=== PATIENT | male | born 1965 | race Caucasian/White ===

== ENCOUNTER 2019-01-31 02:46 | Emergency (ER) | payer OTHER ==
[2019-01-31] MEDS ORDERED: PROPARACAINE 0.5% OPHTH DROPS 15 ML BTL RIGHT EYE STA (03:29)
[2019-01-31] MEDS ORDERED: TOBRAMYCIN 0.3% OPHTH OINT 3.5 GM TUBE RIGHT EYE STA (03:58)
--- NOTE | 2019-01-31 04:00 | ED ---
Eye Problem HPI - General Chief complaint: Eye Problems Stated complaint: FB in eye Time Seen by Provider: 01/31/19 03:06 Source: patient Mode of arrival: ambulatory Limitations: no limitations - History of Present Illness Initial comments: 53-year-old male patient presents to the emergency department today for evaluation of right eye redness and discomfort. Patient states that he was working on some ceiling tiles earlier in the day and dust was falling in his face. Patient states he felt that he had a foreign body. Patient states he did rub the eye. Patient states he did flush the eye several times was unable to get the foreign body out. Patient states he is having some mild blurred vision related to this. Denies any fever or chills. Denies any headache. Denies any other symptoms or concerns. - Related Data Allergies Allergy/AdvReac Type Severity Reaction Status Date / Time Penicillins Allergy Unknown Verified 01/31/19 02:57 Childhood Review of Systems ROS Statement: Those systems with pertinent positive or pertinent negative responses have been documented in the HPI. ROS Other: All systems not noted in ROS Statement are negative. Past Medical History Past Medical History: Hypertension History of Any Multi-Drug Resistant Organisms: None Reported Past Surgical History: Appendectomy Additional Past Surgical History / Comment(s): neck fusion Past Psychological History: No Psychological Hx Reported Smoking Status: Current every day smoker Past Alcohol Use History: Occasional Past Drug Use History: None Reported General Exam Limitations: no limitations General appearance: alert, in no apparent distress, other (Social well- developed, well-nourished adult male patient in no acute distress. Vital signs upon presentation are temperature 97.7F, pulse 74, respirations 15, blood pressure 121/76, pulse ox 97% on room air.) Eye exam: Present: PERRL, EOMI, conjunctival injection (Right), other (Fluo rescein stain with Wood's lamp examination was performed. There is small corneal abrasion noted to 4:00. There was foreign body noted to the right lower lid, removed. There is no evidence for conjunctival abrasion. No evidence for globe rupture or hyphema.). Absent: normal appearance, scleral icterus, periorbital swelling Respiratory exam: Present: normal lung sounds bilaterally. Absent: respiratory distress, wheezes, rales, rhonchi, stridor Cardiovascular Exam: Present: regular rate, normal rhythm, normal heart sounds. Absent: systolic murmur, diastolic murmur, rubs, gallop, clicks Neurological exam: Present: alert, oriented X3, CN II-XII intact Psychiatric exam: Present: normal affect, normal mood Skin exam: Present: warm, dry, intact, normal color. Absent: rash Course Vital Signs 01/31/19 02:52 Temperature 97.7 F Pulse Rate 74 Respiratory 15 Rate Blood Pressure 121/76 O2 Sat by Pulse 97 Oximetry Medical Decision Making - Medical Decision Making 53-year-old male patient presented to the emergency department today for evaluation of foreign body to the right eye. Physical examination did reveal right conjunctival injection. Fluorescein stain with Wood's lamp examination was performed and did show evidence for a small corneal abrasion. Patient also had foreign body to the right lower lid. Foreign body was removed. Patient did have relief with use of proparacaine drop. We will give tobramycin ointment to use 4 times daily. He is instructed to follow-up with aprn for recheck in 1-2 days if symptoms aren't improved. Return parameters were discussed in detail. He verbalizes understanding and agrees with this plan. Disposition Clinical Impression: Foreign body of right eye, Corneal abrasion Disposition: HOME SELF-CARE Condition: Good Instructions (If sedation given, give patient instructions): Tobramycin (Into the eye), Corneal Abrasion (ED), Eye Foreign Body (ED) Additional Instructions: Use tobramycin ointment, 1 cm ribbon to the lower eyelid 4 times daily while awake. If symptoms aren't improving over the next 1-2 days follow-up with the aprn for further evaluation. Return to the emergency department immediately for any new, worsening, or concerning symptoms. Is patient prescribed a controlled substance at d/c from ED?: No Referrals: Ben Vargas MD [Primary Care Provider] - 1-2 days Solange Gupta MD [STAFF PHYSICIAN] - 1-2 days Time of Disposition: 03:59
[2019-01-31 04:11] VITALS: BP 130/79; PULSE 69; RESP 18; TEMP 97.9
== END 2019-01-31 04:29 | disposition home or self-care (01) ==
LOC: EC 02:46
DX: T15.01XA Foreign body in cornea, right eye, initial encounter (principal); F17.200 Nicotine dependence, unspecified, uncomplicated; Z88.0 Allergy status to penicillin
CPT/HCPCS: 65220; 99283

== ENCOUNTER → 2023-11-23 | Outpatient (CLI) | payer OTHER ==
--- NOTE | 2023-11-24 05:49 | MR ---
EXAMINATION TYPE: MR lumbar spine wo con DATE OF EXAM: 11/23/2023 7:23 AM CLINICAL INDICATION:Male, 58 years old with history of M51.36 OTHER INTERVERTEBRAL DISC DEGENERATION, LUM; PHH, Back pain that travels to RT and Left Thigh x20 Years COMPARISON: None TECHNIQUE: Multiplanar, multi sequential MR imaging of the lumbar spine performed without contrast. FINDINGS: Alignment: The lumbar vertebral bodies have preserved heights and alignment. Cord, canal: Conus medullaris terminates at the L1 level without enlargement or signal abnormality. N o pathologic intracanalicular process identified. Tiny perineural cysts suggested at S3. Bones/Discs: Mild disc desiccation noted at each level from L3 to S1. No evidence of marrow edema or focal T1 dark bony lesions. T12-L1: No significant disc pathology or facet arthrosis. The spinal canal and neural foramina are pa tent. L1-L2: Mild broad-based posterior disc bulging and mild facet arthrosis. No significant canal or neur oforaminal stenosis. L2-L3: Mild broad-based posterior disc bulging and mild facet arthrosis. No significant canal or neur al foraminal stenosis. L3-L4: Mild to moderate circumferential disc bulging and mild to moderate hypertrophic facet arthropa thy with ligamentum flavum thickening. There is mild to moderate circumferential spinal canal stenosi s and [id number] bilateral neuroforaminal stenosis. L4-L5: Mild to moderate circumferential disc bulging and moderate hypertrophic facet arthropathy with ligamentum flavum thickening. There is moderate spinal canal stenosis and moderate bilateral neurofo raminal stenosis. L5-S1: Mild circumferential disc bulging with superimposed mild broad-based disc protrusion extending inferior foraminal narrowing on the right. Small high signal intensity zone at the disc suggests andie ular tear. There is mild/moderate bilateral facet arthrosis. These changes result in mild to moderate spinal canal stenosis and moderate bilateral foraminal stenosis. Other: The visualized paraspinous soft tissues show no significant abnormality. Suspected mild athero sclerotic disease of the aorta, no AAA is visualized. On hand tufter views there is the suggestion of a mei ewhat prominent prostate gland. IMPRESSION: 1. Multilevel lumbar spondylosis, as detailed above. Moderate spinal canal stenosis and bilateral ne ural foraminal stenosis L4-L5. 2. No evidence of focal disc protrusion or acute osseous abnormality. 3. Suggestion of prominent prostate gland. Correlate clinically, with PSA values.
== END | disposition home or self-care (01) ==
LOC: RADMRIMAIN 06:27
PROVIDERS: ATTEND Family Medicine
DX: M47.816 Spondylosis without myelopathy or radiculopathy, lumbar region (principal); M48.061 Spinal stenosis, lumbar region without neurogenic claudication; M51.36 Other intervertebral disc degeneration, lumbar region; M99.73 Connective tissue and disc stenosis of intervertebral foramina of lumbar region
CPT/HCPCS: 72148

== ENCOUNTER 2024-01-07 14:27 | Emergency (ER) | payer OTHER ==
[2024-01-07 15:06] VITALS: TEMP 97.7
[2024-01-07] MEDS: LIDOCAINE 1% INJ 10MG/ML (20 ML MDV) SQ ONE (16:11)
--- NOTE | 2024-01-07 17:14 | ED ---
Wound/Laceration HPI - General Chief Complaint: Wound/Laceration Stated Complaint: Left hand laceration Time Seen by Provider: 01/07/24 16:00 Source: patient, RN notes reviewed Mode of arrival: ambulatory Limitations: no limitations - History of Present Illness Initial Comments: 58-year-old male presenting with laceration to left hand 1 hour prior to ar rival. States he was cutting a package open with a knife when the knife accidentally slipped and sliced his hand. Denies blunt trauma to the area. He is not on thinners. He is right-hand dominant. Unsure of his last tetanus. Denies numbness or tingling. - Related Data Allergies Allergy/AdvReac Type Severity Reaction Status Date / Time Penicillins Allergy Unknown Verified 01/31/19 02:57 Childhood Review of Systems ROS Statement: Those systems with pertinent positive or pertinent negative responses have been documented in the HPI. ROS Other: All systems not noted in ROS Statement are negative. Past Medical History Past Medical History: Hypertension History of Any Multi-Drug Resistant Organisms: None Reported Past Surgical History: Appendectomy Additional Past Surgical History / Comment(s): neck fusion Past Psychological History: No Psychological Hx Reported Past Alcohol Use History: Occasional Past Drug Use History: None Reported General Exam Limitations: no limitations General appearance: alert, in no apparent distress Head exam: Present: atraumatic, normocephalic, normal inspection Left Forearm Wrist exam: Present: normal inspection, full ROM. Absent: tenderness, swelling Hand Wrist exam: Present: full ROM, laceration (5 cm linear laceration present on dorsal aspect of left hand between first and second digits. There is mild amount of tissue protruding through wound. there is no active bleeding. There is no surrounding erythema or tenderness.), other (Cap refill less than 2 seconds and full sensation of left first and second digits. Full radial pulses.) Vascular: Present: normal capillary refill. Absent: vascular compromise Course Vital Signs 01/07/24 14:30 Temperature 97.7 F Pulse Rate 76 Respiratory 16 Rate Blood Pressure 155/82 O2 Sat by Pulse 98 Oximetry Procedures - Laceration Laceration #1 Consent Obtained: verbal consent Indication: laceration Site: hand Description: linear Depth: simple, single layer Anesthetic Used: lidocaine 1%, without epi Anesthesia Technique: local infiltration Pre-repair: wound explored, irrigated extensively, deep structures intact Type of Sutures: nylon Size of Sutures: 4-0 Number of Sutures: 6 Technique: simple, interrupted Patient Tolerated Procedure: well, no complications Additional Comments: Neurovascularly intact status post procedure Medical Decision Making - Medical Decision Making Was pt. sent in by a medical professional or institution ([facility] Guadarrama, NET DEVELOPER ARCHITECT, urgent care, hospital, or [facility]...) When possible be specific @ -No Did you speak to anyone other than the patient for history (EMS, parent, family, police, friend...)? What history was obtained from this source @ -Patient's supplemented history Did you review nursing and triage notes (agree or disagree)? Why? @ -I reviewed and agree with nursing and triage notes Were old charts reviewed (outside hosp., previous admission, EMS record, old EKG, old radiological studies, urgent care reports/EKG's, [facility] records)? Report findings @ -No old charts were reviewed Differential Diagnosis (chest pain, altered mental status, abdominal pain women, abdominal pain men, vaginal bleeding, weakness, fever, dyspnea, syncope, he adache, dizziness, GI bleed, back pain, seizure, CVA, palpatations, mental health, musculoskeletal)? @ -Differential Musculoskeletal Laceration, muscular strain, contusion, ligament sprain, fracture, arthritis, septic arthritis, bursitis, cellulitis, muscle spasm, nerve compression, DVT, arterial occlusion, herpes zoster, electrolyte abnormality, tumor.... This is not meant to be in all inclusive list EKG interpreted by me (3pts min.). @ -None X-rays interpreted by me (1pt min.). @ -None done CT interpreted by me (1pt min.). @ -None done U/S interpreted by me (1pt. min.). @ -None done What testing was considered but not performed or refused? (CT, X-rays, U/S, labs)? Why? @ -X-ray not performed due to no blunt trauma to hand What meds were considered but not given or refused? Why? @ -None Did you discuss the management of the patient with other professionals (professionals i.e. [employer] Guadarrama, NET DEVELOPER ARCHITECT, lab, RT, psych nurse, social services coordinator, sewing machine repairer, teacher, weapons electrical engineering officer, medical case worker)? Give summary @ -No Was smoking cessation discussed for >3mins.? @ -No Was critical care preformed (if so, how long)? @ -No Were there social determinants of health that impacted care today? How? (Homelessness, low income, unemployed, alcoholism, drug addiction, transportation, low edu. Level, literacy, decrease access to med. care, half-way, rehab)? @ -No Was there de-escalation of care discussed even if they declined (Discuss DNR or withdrawal of care, Hospice)? DNR status @ -No What co-morbidities impacted this encounter? (DM, HTN, Smoking, COPD, CAD, Cancer, CVA, ARF, Chemo, Hep., AIDS, mental health diagnosis, sleep apnea, morbid obesity)? @ -None Was patient admitted / discharged? Hospital course, mention meds given and route, prescriptions, significant lab abnormalities, going to OR and other perti nent info. @ -Patient was discharged. Patient was seen and evaluated for laceration of left hand. Patient is neurovascularly intact. 6 sutures placed and tolerated well. Neurovascularly intact status post procedure. Wound care discussed with patient. Instructed to return in 7 days for suture removal. Alarm symptoms discussed. Tetanus updated. Patient discharged in stable condition. Case discussed with Dr. Mock Undiagnosed new problem with uncertain prognosis? @ -No Drug Therapy requiring intensive monitoring for toxicity (Heparin, Nitro, Insulin, Cardizem)? @ -No Were any procedures done? @ -6 sutures were placed with no complications Diagnosis/symptom? @ -Laceration of left hand Acute, or Chronic, or Acute on Chronic? @ -Acute Uncomplicated (without systemic symptoms) or Complicated (systemic symptoms)? @ -Uncomplicated Side effects of treatment? @ -No Exacerbation, Progression, or Severe Exacerbation? @ -No Poses a threat to life or bodily function? How? (Chest pain, [place], [place], pneumonia, PE, COPD, DKA, ARF, appy, cholecystitis, CVA, Diverticulitis, Homicidal, Suicidal, threat to staff... and all critical care pts) @ -No Disposition Clinical Impression: Laceration Disposition: HOME SELF-CARE Condition: Stable Instructions (If sedation given, give patient instructions): Laceration (ED) Additional Instructions: Follow-up in 7 days for suture removal. Please return to the Emergency Department if symptoms worsen or any other concerns. Is patient prescribed a controlled substance at d/c from ED?: No Referrals: Ben Vargas MD [Primary Care Provider] - 1-2 days Time of Disposition: 17:14
[2024-01-07] MEDS: DIPH,PERTUS(ACELL)TETVAC-LF 0.5 ML VIAL IM ONE (17:26)
[2024-01-07 17:48] VITALS: BP 157/89; PULSE 70; RESP 18
== END 2024-01-07 17:32 | disposition home or self-care (01) ==
LOC: EC 14:27
DX: S61.412A Laceration without foreign body of left hand, initial encounter (principal); Z23 Encounter for immunization; Z88.0 Allergy status to penicillin; W26.0XXA Contact with knife, initial encounter
CPT/HCPCS: 90715; 12002; 99282; 90471; J2001